=== PATIENT | female | born 1990 ===

== ENCOUNTER 2021-05-18 08:02 | Outpatient (CLI) | payer OTHER | END 2021-05-18 09:20 | disposition home or self-care (01) | LOC: PRENATAL 08:02 | PROVIDERS: ATTEND Obstetrics & Gynecology Maternal & Fetal Medicine | DX: O36.8310 Maternal care for abnormalities of the fetal heart rate or rhythm, first trimester, not applicable or unspecified (principal); O34.11 Maternal care for benign tumor of corpus uteri, first trimester; O36.80X1 Pregnancy with inconclusive fetal viability, fetus 1; Z36.89 Encounter for other specified antenatal screening; Z3A.08 8 weeks gestation of pregnancy ==